=== PATIENT | female | born 2000 ===

== ENCOUNTER → 2019-08-22 09:31 | Day surgery (SDC) | payer BC ==
[~2019-08-22 09:31] MED LIST: Acetaminophen TAB* 325 MG ONE; Acetaminophen TAB* 325 MG PO ONE; Buffered Lidocaine 1% SYRIN* 1 ML/SYRINGE INTRADERM ONE; Dexamethasone IV* 4 MG/ML 1 ML (4 MG) ONE; DiMENhydriNATE IV* 50 MG/ML VIAL IV PUSH PRN; Famotidine IV* 10 MG/ML 2 ML (20 mg) IV ONE; Famotidine IV* 10 MG/ML 2 ML (20 mg) ONE; Gabapentin CAP(*) 400 MG PO ONE; Lactated Ringers 1000 ML Bag* 1,000 ML IV SCH; Midazolam* 1 MG/ML 2 ML VIAL (2 MG) ONE; Naloxone* 0.4 MG/ML 1 ML VIAL IV PRN; Ondansetron INJ* 2 MG/ML VIAL IV PRN; Ondansetron INJ* 2 MG/ML VIAL ONE; Propofol* 10 MG/ML 20 ML BTL ONE; Rocuronium* 10 MG/ML VIAL ONE; Scopolamine 1.5 mg* PATCH TRANSDERM PRN; Scopolamine PATCH Remove* 1 NOTE MISC PATCH OFF ONE; diPHENhydraMINE IV* 50 MG/ML 1 ml VIAL (BENADRYL) IV PRN; fentaNYL* 50 MCG/ML 2 ML VIAL (100 MCG VIAL) IV PRN; fentaNYL* 50 MCG/ML 2 ML VIAL (100 MCG VIAL) ONE
[2019-08-22 19:41] VITALS: BP 121/56
--- NOTE | 2019-08-23 00:24 | OP ---
OPERATIVE REPORT: DATE OF OPERATION: 08/22/19 - SDS DATE OF : 89 SURGEON: Truong Anand MD MANAGER WELDING: None. ANESTHESIOLOGIST: Gigi Barrientos MD ANESTHESIA: General. PRE-OP DIAGNOSIS: Chronic tonsillitis. POST-OP DIAGNOSIS: Chronic tonsillitis. OPERATIVE PROCEDURE: Tonsillectomy. ESTIMATED BLOOD LOSS: Negligible. SPECIMENS: Right and left tonsils to Pathology. INDICATIONS: This is a 19-year-old woman who has had problems with chronic tonsillitis. She presents for elective tonsillectomy. DESCRIPTION OF PROCEDURE: She was brought to the operating room. General anesthesia was induced and an oral endotracheal tube was placed. The table was turned. The patient was draped. Head wrap applied and a time-out was performed. A McIvor mouth gag was used to facilitate exposure of the oropharynx. The right tonsil was grasped with a straight Allis forceps, retracted medially and dissected free of its fossa with coblation device at a setting of 7 and 3. There was minimal bleeding. The left tonsil was removed in an identical fashion. Again utilizing the coblation device at a setting of 7 and 3 with minimal bleeding. Once the tonsils were removed, the superior and inferior pole regions were prophylactically cauterized with the coblation device at a setting of 5. The stomach was then evacuated with an orogastric tube. The mouth gag was let down for a period of a minute. It was then opened again. There was no evidence of active bleeding. The patient was then returned to the care of the anesthesiologist for extubation. [id number]/[facility] #: [id number] [facility]
== END | disposition home or self-care (01) ==
LOC: OR 09:31
PROVIDERS: ATTEND Otolaryngology
DX: J35.01 Chronic tonsillitis (principal); Q60.0 Renal agenesis, unilateral; F41.9 Anxiety disorder, unspecified; N92.6 Irregular menstruation, unspecified
CPT/HCPCS: 81025; 88304; A9270-GY; J1100; J2250; J2405; J2704; J3010